=== PATIENT | male | born 1985 | race Caucasian/White ===

== ENCOUNTER 2022-08-19 08:44 | Outpatient (CLI) | payer OTHER, SELFPAY ==
--- NOTE | 2022-08-19 11:00 | NEURO_ITS ---
Impression: # Complains of numbness and pain in right hand. # No Carpal Tunnel Syndrome. # Mild right ulnar neuropathy across the elbow. # Normal needle/EMG exam. Motor Nerve Conduction Upper Extremities Median Nerve Conduction Velocity (m/sec) Terminal Latency (msec) Response Voltage(mV) Elbow-Wrist Wrist Elbow Wrist Right 64 3.2 3 3 Left Ulnar Nerve Conduction Velocity (m/sec) Terminal Latency (msec) Response Voltage(mV) Above Elbow Below Elbow Wrist Above Elbow Below Elbow Wrist Right 56 57 2.8 3 1 4 Left F-Wave Latency Median (ms) Ulnar (ms) Right 29.3 31.1 Left Sensory Nerve Conduction Upper Extremities Median Nerve Stimulation Terminal Latency (msec) Wrist/Digit Response Voltage (uV) Wrist Right 3.4/3.2 51/44 Left Ulnar Nerve Stimulation Terminal Latency (msec) Wrist/Digit Response Voltage (uV) Wrist Right 3.0 14 Left Radial Nerve Terminal Latency (msec) Response Voltage(mV) Right 2.6 24 Left Left Right Muscles Examined Fibrillation Fasciculation Scarcity Voltage Duration Left Right Left Right Left Right Left Right Left Right Deltoid Biceps X Brachioradialis Triceps X Pronator Teres X Ext Indicis X Ext Digitorum X Abd Poll Brev X 1st Dorsal Interosseus X Abd Dig Min MTDD
== END 2022-08-19 08:45 | disposition home or self-care (01) ==
LOC: ANHNEURO 08:46
PROVIDERS: Visit Provider Plastic Surgery
DX: R20.2 Paresthesia of skin (principal); G56.01 Carpal tunnel syndrome, right upper limb
CPT/HCPCS: 95886; 95909